=== PATIENT | female | born 1980 | race Caucasian/White ===

== ENCOUNTER → 2016-08-05 | Day surgery (SDC) | payer OTHER ==
[~2016-08-05] MED LIST: ACETAMINOPHEN PO; AMBIZINE25 MG PO; AMOXICILLIN875 MG PO; BACITRACIN OP3.5 GM; BENADRYL PO; DICYCLOMINE HCL20 MG PO; FAMOTIDINE PO; FIORICET1 TAB; FIORICET1 TAB PO; FIORINAL CAPSUL1 CAP PO; FLEXERIL10 M1 PO; FLEXERIL10 MG PO; IBUPROFEN800 MG PO; KEFLEX500 M1; KEPPRA1000 MG PO; KEPPRA500 M2 PO; LORTAB 7.5-5001 TAB PO; MACROBID100 M1 PO; MEDROL4 MG/DOSE- PO; MONDOXYNE NL100 MG PO; NAPROSYN500 MG PO; NO MEDICATIONS; OMEPRAZOLE20 M1 PO; OMNICEF300 MG PO; PREDNISONE PO; TYLENOL #3 PO; VICODIN 5/1 TAB 5/50 PO; VOLTAREN75 MG PO; ZOFRAN ODT4 MG; ZOFRAN ODT4 MG PO; ZOFRANODT PO
--- NOTE | ~2016-08-05 | OR ---
Unit #: [id number] #: [id number] Patient: GERONIMO HAGER [id number] [address] [address] [id number] O MR#: [id number] NAME: GERONIMO HAGER ROOM: Date of Procedure: 08/05/2016 Admission Date: 08/05/2016 Surgeon: Adrian Taylor M.D. : 1980 Attending Physician: Adrian Taylor M.D. Primary Care Physician: Sil Warner M.D. OPERATIVE REPORT PROCEDURES PERFORMED Esophagogastroduodenoscopy with biopsy and esophagogastroduodenoscopy with balloon dilatation. INDICATIONS FOR PROCEDURE A 35-year-old female with significant dysphagia, history of severe esophagitis, multiple ulcerations in the stomach and esophagus as well as H. pylori gastritis, undergoing repeat evaluation for dilation at this time. MEDICATIONS Monitored anesthesia. POSTOPERATIVE FINDINGS 1. Previously documented esophagitis seems to be significantly healed, however, there are still a few small ulcers seen. 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 Dilation was carried out. No biopsies were taken from this area at this point. 2. Mild gastritis. Given her history of H. pylori, I took biopsies to look for clearing. 3. Normal duodenum and distal duodenum. PLAN Continue b.i.d. PPI and reflux precautions. Consider repeat evaluation for Green's. Biopsies after 6 to 12 months. DESCRIPTION OF PROCEDURE The patient was explained of the procedure, risks, and benefits along with risks and benefits of anesthesia. She was brought to the endoscopy room. Propofol anesthesia was given. Bite block was placed. The scope was passed down the mouth into the esophagus, stomach, duodenum, and distal duodenum. Findings as described. Biopsy was taken. Esophageal dilation was carried out successfully. Gently, the scope was pulled out. She tolerated it well. No major complications were seen. Dictated by... Adrian Taylor M.D. SHREYA/charity Unit #: [id number] #: [id number] Patient: GERONIMO HAGER TD: 08/05/2016 17:24 JOB #: [id number] OPERATIVE REPORT Page 1 of 1 X Adrian Taylor MD PROCEDURE OPERATIVE NOTE
== END | disposition home or self-care (01) ==
LOC: COPS 06:42
DX: K22.2 Esophageal obstruction (principal); K22.10 Ulcer of esophagus without bleeding; K29.70 Gastritis, unspecified, without bleeding; K21.9 Gastro-esophageal reflux disease without esophagitis; E66.9 Obesity, unspecified; G43.909 Migraine, unspecified, not intractable, without status migrainosus; Z88.2 Allergy status to sulfonamides; Z68.42 Body mass index [BMI] 45.0-49.9, adult; Z91.040 Latex allergy status; Z79.899 Other long term (current) drug therapy; Z98.51 Tubal ligation status; Z98.890 Other specified postprocedural states
CPT/HCPCS: 84703; 88305; 88312; J2250

== ENCOUNTER → 2016-09-09 | Outpatient (CLI) | payer OTHER ==
--- NOTE | ~2016-09-09 | MR103 ---
[facility]. [facility] A Service of [facility] [place] RADIOLOGY TEXT RESULTS PATIENT: ALLEYMAY PAULINE LOCATION: [facility] : [birth year] UNIT #: [id number] AGE: [address]: Socorro Salcedo APRN SEX: F ORDER DR: [id number] [address] [address] [id number] O MR#: [id number] Acc #: [id number] NAME: ALLEYMay : 1980 SEX: F STUDY DATE/TIME: 09/09/2016 10:29 UNIT: [facility] ROOM: STUDY DESCRIPTION: MR Knee Wo Contrast Lt Attending Physician: Socorro Salcedo A.P.R.N. Referring Physician: Socorro Salcedo A.P.R.N. Ordering Physician: Socorro Salcedo A.P.R.N. Primary Care Physician: Sil Warner M.D. MRI CENTER REPORT This report is preliminary unless electronic signature is present. EXAM Left knee MRI without contrast, 09/09/2016 HISTORY 35-year-old female with left knee pain for 1 week. No specific injury. No prior left knee surgery COMPARISON Left knee MRI 07/18/2015. Left knee x-rays 09/01/2015, 02/27/2016 and 09/06/2016. TECHNIQUE Routine unenhanced multiplanar, multisequence high field MR imaging of the left knee was performed. FINDINGS The menisci are intact. Cruciate and collateral ligaments are intact. Extensor mechanism is intact. No joint effusion. No popliteal cyst. The articular cartilage of the patella is intact. 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 Lateral compartment articular cartilage intact. Medial compartment articular cartilage intact. Remainder of the bone marrow signal is within normal limits. Visualized musculature is unremarkable. IMPRESSION 1. No evidence of a meniscus tear or acute ligament injury. 2. 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 [facility] A Service of [facility] RADIOLOGY TEXT RESULTS PATIENT: ALLEYMAY PAULINE LOCATION: [facility] : [birth year] UNIT #: [id number] AGE: [address]: Socorro Salcedo APRN SEX: F ORDER DR: Dictated by... Antonio Adams M.D. THIS IS AN ELECTRONICALLY VERIFIED REPORT Antonio Adams M.D. at 09/13/2016 1:15 PM VIJI/carrie TD: 09/10/2016 10:10 JOB #: [id number] MRI CENTER REPORT Page 1 of 1
== END | disposition home or self-care (01) ==
LOC: SMRI 09:48
DX: M25.562 Pain in left knee (principal); M94.262 Chondromalacia, left knee
CPT/HCPCS: 73721